=== PATIENT | female | born 1985 | race Caucasian/White ===

== ENCOUNTER 2016-08-16 19:37 | Outpatient (CLI) | payer BC ==
[2016-08-16 19:55] VITALS: BP 140/93
[2016-08-16 20:25] VITALS: BP 141/88
[2016-08-16] MEDS ORDERED: PRENA1 TRUE CO1 EACH PO (20:38)
== END 2016-08-16 21:00 | disposition home or self-care (01) ==
LOC: LDRP-OP → 2WEST 19:41 → LDRP-OP 09-19 18:39
DX: O47.1 False labor at or after 37 completed weeks of gestation (principal); Z3A.39 39 weeks gestation of pregnancy
CPT/HCPCS: 59025; G0378

== ENCOUNTER 2016-08-17 11:03 | Inpatient (IN) | payer BC ==
[2016-08-17] VITALS (24 sets, daily range): BP systolic 94–148; BP diastolic 52–97
[~2016-08-17 11:03] MED LIST: PRENA1 TRUE CO1 EACH PO
[2016-08-17 13:27] LABS: EOSINOPHIL (%) 0 % (0-5); HEMATOCRIT 39.1 % (36.0-46.0); IMMATURE GRANULOCYTE (%) 0.7 % (0.0-0.7); IMMATURE GRANULOCYTE COUNT 0.1 K/uL; INSTRUMENT ABS NEUTROPHIL CT 10.9 K/uL; LYMPHOCYTE COUNT 1.7 K/uL (1.0-2.8); MCH 33.5 PG (29.0-34.0); MCHC 34.5 G/DL (30.0-36.0); MEAN PLAT.VOLUME 11.3 uM^3 (9.5-12.4); NEUTROPHIL COUNT 10.9 K/uL (1.8-6.4); PLATELET COUNT 255 K/uL (156-360); RBC DIS.WIDTH-CV 12.7 % (11.8-14.6); RBC DIS.WIDTH-SD 44.8 % (39-53); RED BLOOD COUNT 4.03 M/uL (3.80-5.20); WHITE BLOOD COUNT 13.7 K/uL (4.1-10.2)
[2016-08-18] VITALS (15 sets, daily range): BP systolic 96–174; BP diastolic 51–106
[2016-08-18] MEDS ORDERED: MOTRIN800 MG PO (04:40)
[2016-08-18 06:00] LABS: ALKALINE PHOSPHATASE 122 IU/L (3-129); ANION GAP 11 MEQ/L (2-14); CHLORIDE 105 MEQ/L (99-109); GFR ESTIMATE (CALCULATED) > 59 mL/min/; GLUCOSE 93 mg/dL (70-99); SAMPLE HEMOLYSIS CHECK 0; SAMPLE ICTERIC CHECK 0; SAMPLE LIPEMIA CHECK 0; SODIUM 139 MEQ/L (136-147); TOTAL BILIRUBIN 0.4 MG/DL (0.0-1.0); UREA NITROGEN (BUN) 10 mg/dL (9-23)
[2016-08-18 06:37] LABS: EOSINOPHIL (%) 0 % (0-5); HEMATOCRIT 36.6 % (36.0-46.0); IMMATURE GRANULOCYTE (%) 0.6 % (0.0-0.7); IMMATURE GRANULOCYTE COUNT 0.1 K/uL; INSTRUMENT ABS NEUTROPHIL CT 15.9 K/uL; LYMPHOCYTE COUNT 0.9 K/uL (1.0-2.8); MCH 33.6 PG (29.0-34.0); MCHC 34.4 G/DL (30.0-36.0); MCV 97.6 FL (83-99); MEAN PLAT.VOLUME 11.4 uM^3 (9.5-12.4); MONOCYTE (%) 6.9 % (3-12); MONOCYTE COUNT 1.3 K/uL (0-0.8); NEUTROPHIL (%) 87.7 % (45-76); NEUTROPHIL COUNT 15.9 K/uL (1.8-6.4); PLATELET COUNT 186 K/uL (156-360); RBC DIS.WIDTH-CV 12.6 % (11.8-14.6); RBC DIS.WIDTH-SD 45.1 % (39-53); RED BLOOD COUNT 3.75 M/uL (3.80-5.20)
[2016-08-18 06:48] LABS: WHITE BLOOD COUNT 18.1 K/uL (4.1-10.2)
[2016-08-19 09:22] LABS: EOSINOPHIL (%) 1.1 % (0-5); EOSINOPHIL COUNT 0.1 K/uL (0-0.3); HEMATOCRIT 33.4 % (36.0-46.0); IMMATURE GRANULOCYTE (%) 0.9 % (0.0-0.7); IMMATURE GRANULOCYTE COUNT 0.1 K/uL; INSTRUMENT ABS NEUTROPHIL CT 6.5 K/uL; LYMPHOCYTE COUNT 1.7 K/uL (1.0-2.8); MCH 33.6 PG (29.0-34.0); MCHC 33.8 G/DL (30.0-36.0); MCV 99.4 FL (83-99); MEAN PLAT.VOLUME 11.3 uM^3 (9.5-12.4); MONOCYTE (%) 5.4 % (3-12); MONOCYTE COUNT 0.5 K/uL (0-0.8); NEUTROPHIL (%) 73.3 % (45-76); NEUTROPHIL COUNT 6.5 K/uL (1.8-6.4); PLATELET COUNT 141 K/uL (156-360); RBC DIS.WIDTH-CV 12.8 % (11.8-14.6); RBC DIS.WIDTH-SD 46.3 % (39-53); RED BLOOD COUNT 3.36 M/uL (3.80-5.20)
[2016-08-19 09:29] LABS: WHITE BLOOD COUNT 8.9 K/uL (4.1-10.2)
[2016-08-19 12:38] VITALS: BP 127/82
[2016-08-19 14:29] VITALS: BP 126/80
[2016-08-19 21:46] VITALS: BP 136/95
[2016-08-20 00:11] VITALS: BP 124/81
== END 2016-08-20 00:30 | disposition home or self-care (01) | DRG 775 ==
LOC: LDRP-OP 11:03 → 2WEST 11:04 → LDRP-OP 10-02 08:55
PROVIDERS: Midwife; Obstetrics & Gynecology
PROC: 3E0R3CZ (ICD-10-PCS; principal; 2016-08-20)
PROC: 10E0XZZ Delivery of Products of Conception, External Approach (ICD-10-PCS; principal; 2016-08-20)
PROC: 10907ZC Drainage of Amniotic Fluid, Therapeutic from Products of Conception, Via Natural or Artificial Opening (ICD-10-PCS; principal; 2016-08-20)
PROC: 00HU33Z Insertion of Infusion Device into Spinal Canal, Percutaneous Approach (ICD-10-PCS; principal; 2016-08-20)
DX: O70.9 Perineal laceration during delivery, unspecified (principal); Z3A.39 39 weeks gestation of pregnancy; Z37.0 Single live birth; O63.1 Prolonged second stage (of labor)
CPT/HCPCS: 80053; 82247; 82248; 82261 90; 82776 90; 84030 90; 84510 90; 85025; C1755; G0378; J3010; J7120; S0020